=== PATIENT | female | born 1985 | race Caucasian/White ===

== ENCOUNTER 2016-12-07 13:30 | Emergency (ER) | payer OTHER ==
[~2016-12-07] VITALS: Ht 165.1 cm; Wt 79.8 kg
[2016-12-07] MEDS ORDERED: HYDROCODONE-AP1 EAC6 PO (14:30)
[2016-12-07] MEDS ORDERED: IBUPROFEN 600600 M1 PO (14:30)
[2016-12-07] MEDS ORDERED: ONDANSETRON HCL4 M2 PO ×2 (14:40→14:42)
[2016-12-07 14:45] VITALS: BP 115/77
== END 2016-12-07 14:48 | disposition home or self-care (01) ==
LOC: ER 13:30
DX: S30.0XXA Contusion of lower back and pelvis, initial encounter (principal); F10.99 Alcohol use, unspecified with unspecified alcohol-induced disorder; Z88.5 Allergy status to narcotic agent; V00.121A Fall from non-in-line roller-skates, initial encounter; Y93.51 Activity, roller skating (inline) and skateboarding; Y92.89 Other specified places as the place of occurrence of the external cause; Y99.8 Other external cause status